=== PATIENT | male | born 1990 | race Two or more races ===

== ENCOUNTER 2023-06-06 20:22 | Emergency (ER) | payer MEDICAID ==
[~2023-06-06] VITALS: Ht 172.7 cm; Wt 66.2 kg
[2023-06-06 20:27] VITALS: BP 140/90
== END 2023-06-06 23:17 | disposition home or self-care (01) ==
LOC: ER 20:22
DX: S90.821A Blister (nonthermal), right foot, initial encounter (principal); S90.822A Blister (nonthermal), left foot, initial encounter; S90.425A Blister (nonthermal), left lesser toe(s), initial encounter; S90.424A Blister (nonthermal), right lesser toe(s), initial encounter; X58.XXXA Exposure to other specified factors, initial encounter
CPT/HCPCS: 99283

== ENCOUNTER 2023-06-13 14:23 | Emergency (ER) | payer MEDICAID ==
[~2023-06-13] VITALS: Ht 170.2 cm; Wt 66.2 kg
[2023-06-13 14:33] VITALS: BP 144/93
[2023-06-13] MEDS ORDERED: Tenex1 MG PO (14:38)
== END 2023-06-13 14:55 | disposition home or self-care (01) ==
LOC: ER 14:23
DX: Z76.0 Encounter for issue of repeat prescription (principal); M79.673 Pain in unspecified foot; F90.9 Attention-deficit hyperactivity disorder, unspecified type; F43.10 Post-traumatic stress disorder, unspecified; Z79.899 Other long term (current) drug therapy
CPT/HCPCS: 99283

== ENCOUNTER 2023-06-13 18:36 | Emergency (ER) | payer MEDICAID ==
[~2023-06-13] VITALS: Ht 172.7 cm; Wt 66.2 kg
[~2023-06-13 18:36] MED LIST: Tenex1 MG PO
[2023-06-13 18:40] VITALS: BP 134/94
== END 2023-06-13 19:23 | disposition home or self-care (01) ==
LOC: ER 18:36
DX: F41.9 Anxiety disorder, unspecified (principal); F90.9 Attention-deficit hyperactivity disorder, unspecified type; Z59.00 Homelessness unspecified; Z59.6 Low income; Z79.899 Other long term (current) drug therapy
CPT/HCPCS: 99281

== ENCOUNTER 2023-06-17 03:21 | Emergency (ER) | payer MEDICAID ==
[~2023-06-17] VITALS: Ht 177.8 cm; Wt 81.7 kg
[2023-06-17] MEDS ORDERED: BUPROPION XL150 M1 PO (07:16)
[2023-06-17] MEDS ORDERED: Adderall Xr 2020 MG PO (07:16)
[2023-06-17] MEDS ORDERED: ERGO50000 (07:17)
[2023-06-17 08:29] VITALS: BP 130/91
== END 2023-06-17 10:36 | disposition home or self-care (01) ==
LOC: ER 03:21
DX: Z02.89 Encounter for other administrative examinations (principal); Z59.00 Homelessness unspecified
CPT/HCPCS: 99283

== ENCOUNTER 2023-06-18 09:16 | Emergency (ER) | payer MEDICAID ==
[~2023-06-18] VITALS: Ht 167.6 cm; Wt 66.2 kg
[~2023-06-18 09:16] MED LIST changes: +Adderall Xr 2020 MG PO; +BUPROPION XL150 M1 PO; +ERGO50000
[2023-06-18 10:18] VITALS: BP 122/89
== END 2023-06-18 10:20 | disposition home or self-care (01) ==
LOC: ER 09:16
DX: R63.1 Polydipsia (principal); M79.672 Pain in left foot; M79.671 Pain in right foot; F90.9 Attention-deficit hyperactivity disorder, unspecified type; Z79.899 Other long term (current) drug therapy; Z59.00 Homelessness unspecified
CPT/HCPCS: 99282